=== PATIENT | female | born 2000 | race Caucasian/White ===

== ENCOUNTER 2022-05-29 13:14 | Emergency (ER) | payer SELFPAY ==
[2022-05-29] MEDS ORDERED: Dexameth. Sod Phosp. 10 MG/ML (CHEMO USE ONLY) ONE (14:15)
== END 2022-05-29 14:23 | disposition home or self-care (01) ==
LOC: ERS 13:14
DX: J02.9 Acute pharyngitis, unspecified (principal); J30.2 Other seasonal allergic rhinitis; E03.9 Hypothyroidism, unspecified
CPT/HCPCS: 96372; 99282; J1100